=== PATIENT | female | born 1940 | race Caucasian/White ===

== ENCOUNTER → 2017-02-05 | Day surgery (SDC) | payer MEDICARE, BC ==
[~2017-02-05] MED LIST: ALLEGRA PO; ALPRAZOLAM0.25 MG PO; AMITRIPTYLINE100 MG PO; AMLODIPINE BESY10 MG PO; ARTHROTEC 751 TAB.E2 PO; CALCIUM + D3 E1 EACH PO; CRESTOR PO; NEURONTIN300 MG PO; NORVASC2.5 MG PO; PAROXETINE HCL20 M1 PO; PRILOSEC PO; PRILOSEC20 M1 PO; RETAINE HPMC 0.10 ML OU; VOLTAREN50 MG PO
--- NOTE | ~2017-02-05 | OR ---
Unit #: [id number] #: [id number] Patient: ZEFERINO BLACKWELL [id number] [address] [place], [place] [address] [id number] O MR#: [id number] NAME: ZEFERINO BLACKWELL ROOM: Date of Procedure: 02/05/2017 Admission Date: 02/05/2017 Surgeon: Rishi Barlow M.D. : 1940 Attending Physician: John Barlow Primary Care Physician: Uriel Woods M.D. [facility] OPERATIVE NOTE PROCEDURE PERFORMED Lumbar epidural steroid injection under x-ray guided needle placement with provider administered conscious sedation. PREOPERATIVE DIAGNOSES 1. Acute lumbar radiculitis. 2. Spinal stenosis, lumbosacral spine. 3. Degenerative joint disease, lumbosacral spine. 4. Degenerative disk disease, lumbosacral spine. INDICATIONS FOR PROCEDURE The patient presents today with longstanding history of chronic lumbar radicular pain secondary to her underlying degenerative processes. She is generally fairly well managed medically, but does occasionally experiences acute exacerbations, which to date have only responded to epidural steroid injections. It has been eight months since her last epidural steroid injection. She has developed 3- to 4-week history of an acute exacerbation, which had broken through her ongoing continuous conservative measures. After discussing risks and benefits of proceeding today with lumbar approach epidural steroid injection, the patient agreed this would be the appropriate course of action. DESCRIPTION OF PROCEDURE She was then taken to the operating room, where she was prepped and draped in sterile manner. Standard monitors were applied. She was sedated with 2 mg of IV Versed and lumbar epidural space was accessed at the L4-L5 level using loss resistance of technique and x-ray guidance. She tolerated this procedure well. She was discharged home with followup instructions, which include an offer to return to this clinic as early as on 05/14 if we could be of further service to her. It should be noted that her usual amount relief is 80% to 100% for 4 to 6 months. Dictated by... Lauren Herrera/to TD: 02/06/2017 06:46 JOB #: [id number] Unit #: [id number] #: [id number] Patient: RISHIZEFERINO Pimentel [facility] OPER[facility]IVE NOTE Page 1 of 1 X John Barlow MD PROCEDURE OPERATIVE NOTE
== END | disposition home or self-care (01) ==
LOC: CCSC 12:46
DX: G89.29 Other chronic pain (principal); M51.17 Intervertebral disc disorders with radiculopathy, lumbosacral region; M48.07 Spinal stenosis, lumbosacral region; M47.27 Other spondylosis with radiculopathy, lumbosacral region; K21.9 Gastro-esophageal reflux disease without esophagitis; Z91.040 Latex allergy status; Z79.1 Long term (current) use of non-steroidal anti-inflammatories (NSAID); Z79.899 Other long term (current) drug therapy; Z90.710 Acquired absence of both cervix and uterus
CPT/HCPCS: J1040; J2250

== ENCOUNTER → 2017-05-19 | Day surgery (SDC) | payer MEDICARE, BC ==
--- NOTE | ~2017-05-19 | OR ---
Unit #: [id number] #: [id number] Patient: ZEFERINO BLACKWELL [id number] [address] [place], [place] [address] [id number] O MR#: [id number] NAME: ZEFERINO BLACKWELL ROOM: Date of Procedure: 05/19/2017 Admission Date: 05/19/2017 Surgeon: Rishi Barlow M.D. : 1940 Attending Physician: John Barlow Primary Care Physician: Uriel Woods M.D. [facility] OPERATIVE NOTE PROCEDURE PERFORMED Lumbar epidural steroid injection under x-ray guided needle placement with provider administered conscious sedation. PREOPERATIVE DIAGNOSES 1. Acute lumbar radiculitis. 2. Spinal stenosis, lumbosacral spine. 3. Degenerative joint disease, lumbosacral spine. 4. Degenerative disk disease, lumbosacral spine. INDICATIONS FOR PROCEDURE The patient presents today with longstanding history of chronic lumbar radicular pain secondary to her underlying degenerative processes. She is generally fairly well managed medically with ongoing continuous conservative measures including medical management and self-directed physical activity. She does however on occasion have exacerbations, which to date have only responded to epidural steroid injections. Her usual amount of relief is 60% to 80%, sometimes 100% for 4 to 6 months. She presents today having just such an exacerbation, which as per her usual has broken through her ongoing continuous conservative measures. This is advancing in a crescendo pattern and has began to negatively impact her activities of daily living. After discussing risks and benefits of proceeding today with a lumbar approach epidural steroid injection, the patient agreed this would be the appropriate course of action. We are also going to obtain a CT scan to check for any change in her pattern of disease. DESCRIPTION OF PROCEDURE After these discussions, the patient was taken to the operating room, where she was prepped draped in a sterile manner. Standard monitors were applied. She was sedated with 2 mg of IV Versed and lumbar epidural space accessed at the L4-L5 level using loss of resistance technique and x-ray guidance. Needle placement was confirmed with injection of 2 mL of Omnipaque. There was good superior and inferior flow at this L4-5 placed needle. Following successful needle placement confirmation, the patient received an injectate containing 4 mL normal saline and 80 mg of methylprednisolone. She tolerated this procedure well. She was discharged home with followup instructions, which include return to this clinic as early as 08/20/2017 if we could be of further service to her. Dictated by... Rishi Barlow M.D. Unit #: [id number] #: [id number] Patient: ZEFERINO BLACKWELL JRG/modl TD: 05/19/2017 12:03 JOB #: [id number] CC: Uriel Woods M.D. [facility] OPERATIVE NOTE Page 1 of 1 X John Barlow MD X PROCEDURE OPERATIVE NOTE
== END | disposition home or self-care (01) ==
LOC: CCSC 09:34
DX: G89.29 Other chronic pain (principal); M51.17 Intervertebral disc disorders with radiculopathy, lumbosacral region; M48.07 Spinal stenosis, lumbosacral region; M47.27 Other spondylosis with radiculopathy, lumbosacral region; K21.9 Gastro-esophageal reflux disease without esophagitis; Z79.899 Other long term (current) drug therapy; Z90.710 Acquired absence of both cervix and uterus
CPT/HCPCS: J1040; J2250